=== PATIENT | male | born 1975 | race Caucasian/White ===

== ENCOUNTER 2016-07-16 11:47 | Observation (INO) | payer BC ==
--- NOTE | ~2016-07-16 | HP ---
History And Physical [address] [place]. [address] NAME: CLAUDIO GAMA JR : 75 STATUS : ADM Nydia PAT#: [id number] AGE: 41 ADM/REG DATE : 07/16/16 MR#: [id number] REPORT SERV DATE: 07/16/16 DICTATED BY: HERNANDEZ SANTIAGO DATE: 07/16/16 REPORT STATUS : Draft TRANSCRIBED BY: MODL DATE: 07/16/16 DATE OF ADMISSION: 07/16/2016 CHIEF COMPLAINT: Fever and right fifth toe infection. HISTORY OF PRESENT ILLNESS: This is a 41-year-old gentleman with history of insulin- dependent diabetes type 2, coronary artery disease, ischemic cardiomyopathy, presenting with fever and right fifth toe infection. The patient reports that, he started having fevers up to 104 at home for the past two days. The patient was actually seen at [facility] and at that time, there was no source of infection was identified. Other than the fever, the patient was also asymptomatic. The patient was thus discharged from the ER. At home, the patient unfortunately continued to have fevers and he started having slight pain and burning around, where he had his veins harvested for the CABG procedure in his right leg. Then this morning, the patient's right toe was notably swollen, red, and tender. The patient came to the ER for further evaluation and care. Here in the ER, the patient was found to be afebrile and hemodynamically stable. Initial lab evaluation revealed hyperglycemia with blood sugar of 475, but otherwise benign CMP. CBC was also benign. X-ray was performed and actually identified a small locule of gas in his right fifth toe. The patient was seen by the nurse practitioner here in the ER, who squeezed his right toe to express grossly purulent discharge. Also, the patient's right foot and his leg was red and warm to touch. Internal Medicine consultation was requested for admission of patient for further evaluation and care. REVIEW OF SYSTEMS: The patient had fevers up to 104 at home. Otherwise, 14-point review of systems reviewed and negative other than mentioned above. MEDICATIONS: 1. Tylenol 500 to 1000 mg p.o. q.4 hours p.r.n. 2. Aspirin 81 mg p.o. q.a.m. 3. Wellbutrin 300 mg p.o. q.a.m. 4. Coreg 3.125 mg p.o. b.i.d. 5. Klonopin 0.5 mg p.o. at bedtime p.r.n. 6. NovoLog per sliding scale. 7. Lantus 16 units subcu q.a.m. 8. Lisinopril 2.5 mg p.o. q.a.m. 9. Demadex 20 mg to 40 mg p.o. daily p.r.n. ALLERGIES: 1. IODINATED CONTRAST MEDIUM. 2. PROCAINE. PAST MEDICAL HISTORY: 1. Coronary artery disease. 2. Insulin-dependent diabetes type 2. History And Physical [address] [address] NAME: CLAUDIO GAMA : 75 STATUS : ADM Nydia PAT#: [id number] AGE: 41 ADM/REG DATE : 07/16/16 MR#: [id number] REPORT SERV DATE: 07/16/16 DICTATED BY: HERNANDEZ SANTIAGO DATE: 07/16/16 REPORT STATUS : Draft TRANSCRIBED BY: RADHA DATE: 07/16/16 3. Ischemic cardiomyopathy with ejection fraction of 25% to 35%. The patient has defibrillator and pacemaker. The patient's physicians include: 1. Dr. Yancey, PCP. 2. Dr. Kent of Cardiology. PAST SURGICAL HISTORY: 1. Five-vessel CABG in 2014. 2. Sinus surgeries. 3. Pacemaker and defibrillator implantation. FAMILY HISTORY: Diabetes. SOCIAL HISTORY: The patient has quit smoking since two years ago, when he had the CABG. The patient otherwise does not drink alcohol or use any illicit drugs. The patient lives at home with his , who is at bedside. PHYSICAL EXAMINATION: VITAL SIGNS: Temperature 98.9, blood pressure 142/76, pulse 89, respiratory rate is 16, and saturating 97% on room air. NEUROLOGIC: The patient is alert and oriented x3 with no focal neurologic deficits. GENERAL: The patient is awake, does not appear to be in acute distress, and he is cooperative. NECK: No JVD. No lymphadenopathy. Normal thyroid. CHEST: No midline sternotomy scar and no tenderness to palpation. LUNGS: Clear to auscultation bilaterally with normal respiratory effort on room air. CARDIOVASCULAR: Regular rate and rhythm with no murmurs, rubs, or gallops, and PMI is nondisplaced. ABDOMEN: Soft, nontender, with active bowel sounds and no organomegaly. EXTREMITIES: No edema. Normal distal pulses. No calf tenderness. SKIN: Clean, dry, warm, and intact. Notably, in his right toe and right lower extremity, the patient has some redness and streaking up his dorsal surface of the foot as well as the anterior noriega. The patient's right fifth toe is dark, quite red, to almost turning into black, although this does not seem like it is gangrenous at this point in time. It is nonetheless swollen, quite bad. LABORATORY DATA: Sodium is 135, potassium 4.1, chloride 98, BUN 10, creatinine 1.32, glucose 475, calcium 9.0. LFTs are benign. White blood cell count is 12.2, hemoglobin 16.1, platelets 162. Urinalysis was negative and x-ray of the foot showed a small locule of gas in his right fifth toe and that was before the pus was drained from external pressure. ASSESSMENT AND PLAN: This is a 41-year-old gentleman with history of insulin-dependent diabetes type 2, coronary artery disease, and ischemic cardiomyopathy, presenting with a right fifth toe infection. 1. Right fifth diabetic toe infection with right lower extremity cellulitis and lymphangitis. 2. Coronary artery disease with ischemic cardiomyopathy, ejection fraction of 25%-30%. History And Physical [address] [address] NAME: CLAUDIO GAMA JR : 75 STATUS : ADM Nydia PAT#: [id number] AGE: 41 ADM/REG DATE : 07/16/16 MR#: [id number] REPORT SERV DATE: 07/16/16 DICTATED BY: HERNANDEZ SANTIAGO DATE: 07/16/16 REPORT STATUS : Draft TRANSCRIBED BY: MODL DATE: 07/16/16 The patient has defibrillator and pacemaker. 3. Insulin-dependent diabetes type 2, that is uncontrolled with blood sugar of 475 here in the ER. PLAN: My plan is to admit the patient under telemetry monitoring. The patient will be empirically started on some antibiotics. I will get Podiatry to come and evaluate the patient. In the meantime, I will complete infectious workup with blood cultures as needed when the patient becomes febrile as well as repeating CBC, procalcitonin level, ESR, CRP. For the diabetes that is uncontrolled, the patient will be given additional insulin sliding scale coverage on top of his home insulin. Otherwise, for the rest of stable past medical conditions, including coronary artery disease and ischemic cardiomyopathy, I will continue home medications. Standard DVT prophylaxis. The patient is full code at this time. YSC/MODL Hernandez Santiago MD / [id number] CC: MD Alfie Cuellar M.D., Ph.D, F.A.C.C.
--- NOTE | ~2016-07-16 | OP ---
Record Of Operation [facility] [address] [place]. [address] NAME: CLAUDIO GAMA JR : 75 STATUS : ADM Nydia PAT#: [id number] AGE: 41 ADM/REG DATE : 07/16/16 MR#: [id number] REPORT SERV DATE: 07/17/16 DICTATED BY: MICHELE TEIXEIRA DATE: 07/17/16 REPORT STATUS : Draft TRANSCRIBED BY: MODL DATE: 07/17/16 DATE OF PROCEDURE: 07/17/2016 PREOPERATIVE DIAGNOSIS: Toe infection right foot, small toe. POSTOPERATIVE DIAGNOSIS: Toe infection right foot, small toe. PROCEDURE: Debridement of soft tissues of right small toe. ANESTHESIA: None. SPECIMEN: None. HISTORY: The patient is a 41-year-old, with a toe infection of 5th toe, was admitted by the hospitalist, started on antibiotics. He had gross purulence and also evidence of necrotic skin at the tip of this toe. I discussed the treatment options including debridement and wound care, and he wanted to proceed. OPERATIVE NOTE: I used a scissors to sharply excise the necrotic tissue from the skin just medial and distal to the toenail. I excised the skin layer and subcutaneous tissues as well and excised necrotic tissues of the fat pad down to almost to the bone. We excised the subcutaneous tissues and skin. Then, I irrigated the area extensively with saline, and I placed a wet-to-dry dressing on the toe. He tolerated the procedure well. ROMANA/RADHA Michele Teixeira MD / [id number] CC: MD Stephanie Cuellar M.D.
--- NOTE | ~2016-07-16 | CN ---
Consultation Report [facility] [address] [place]. [address] NAME: CLAUDIO GAMA JR : 75 STATUS : DIS Nydia PAT#: [id number] AGE: 41 ADM/REG DATE : 07/16/16 MR#: [id number] REPORT SERV DATE: 07/17/16 DICTATED BY: MICHELE TEIXEIRA DATE: 07/17/16 REPORT STATUS : Draft TRANSCRIBED BY: MODL DATE: 07/17/16 CONSULTATION DATE OF CONSULTATION: 07/17/2016 CHIEF COMPLAINT: Right small toe infection. HISTORY: The patient is a 41-year-old gentleman who has a history of poorly-controlled diabetes, who noticed infection of his small toe over the last couple of days. He said it was red, swollen, tender and came to the emergency room for evaluation. He also reported having fevers up to 104 for the past two days at home. He complained of purulent discharge from the tip of the 5th small toe as well. He also complains of streaking up his medial side of the leg, streaking erythema. PAST MEDICAL HISTORY: Type 2 diabetes, coronary artery disease, ischemic cardiomyopathy. He has had a CABG in 2015. He has a pacemaker and defibrillator. Sinus surgeries. FAMILY HISTORY: Diabetes. MEDICATIONS: He is on Tylenol, aspirin, Wellbutrin, Coreg, Klonopin, NovoLog sliding scale, Lantus, lisinopril, and Demodex. ALLERGIES: TO CONTRAST AND PROCAINE. SOCIAL HISTORY: Quit smoking two years ago. Does not drink or use illicit drugs. PHYSICAL EXAMINATION: GENERAL: A well-developed, well-nourished male, in no acute distress. HEENT: Normocephalic, atraumatic. RESPIRATORY: Nonlabored respirations. Equal chest rise bilaterally. EXTREMITIES: No cyanosis, clubbing, or edema. He has erythema on the dorsum of his right foot and some erythema up his medial calf and also a toe wound. MUSCULOSKELETAL: Right lower extremity has a toe wound just medial and distal to his nail, has purulent drainage with necrotic skin in that area. He has abnormal sensation with minimal sensation in a stocking-glove type pattern. Motor is intact. SKIN: Erythema of the right toe, redness, and streaking on the dorsum of his foot and anterior noriega. Also, his whole small 5th toe is erythematous. PSYCH: Appropriate mood and affect. NEUROLOGIC: Alert and oriented x3. IMAGING: X-rays; no fractures seen on his foot x-ray, some gas around its distal toe. CT scan shows no evidence of osteomyelitis and no abscess fluid collection. LABORATORY DATA: Glucose on admission 475. Consultation Report [facility] [address] [place] [address] NAME: CLAUDIO GAMA JR : 75 STATUS : DIS Nydia PAT#: [id number] AGE: 41 ADM/REG DATE : 07/16/16 MR#: [id number] REPORT SERV DATE: 07/17/16 DICTATED BY: MICHELE TEIXEIRA DATE: 07/17/16 REPORT STATUS : Draft TRANSCRIBED BY: RADHA DATE: 07/17/16 ASSESSMENT/PLAN: Toe infection. He is already on antibiotics. We will plan for bedside debridement and then dressing changes and then a followup with the wound care facility here at [facility]. GIBSON/RADHA Michele Teixeira MD / [id number] CC: MD Stephanie Cuellar M.D.
--- NOTE | ~2016-07-16 | DS ---
Discharge Summary [facility] [address] [place]. [address] NAME: CLAUDIO GAMA JR : 75 STATUS : DIS Nydia PAT#: [id number] AGE: 41 ADM/REG DATE : 07/16/16 MR#: [id number] REPORT SERV DATE: 07/17/16 DICTATED BY: HERNANDEZ SANTIAGO DATE: 07/17/16 REPORT STATUS : Draft TRANSCRIBED BY: MODL DATE: 07/17/16 ADMISSION DATE: 07/16/2016 DISCHARGE DATE: 07/17/2016 DISCHARGE DIAGNOSES: 1. Right fifth diabetic toe infection along with right lower extremity cellulitis and lymphangitis, status post bedside I and D by Dr. Saavedra. 2. Coronary artery disease with ischemic cardiomyopathy, ejection fraction of 25% to 30%. The patient has a defibrillator and pacemaker. 3. Insulin-dependent diabetes type 2 that was not controlled on ER presentation but better controlled now. CONSULTS: Dr. Saavedra of Podiatry. PROCEDURES: Bedside incision and drainage of the right fifth toe by Dr. Saavedra. HOSPITAL COURSE: This is a 41-year-old gentleman with a history of insulin-dependent diabetes type 2 as well as coronary artery disease and ischemic congestive heart failure who presented to the hospital with a right fifth toe diabetic infection. The patient was admitted to the hospital and was started on empiric IV antibiotics. The patient was seen by Dr. Saavedra of Podiatry who performed a bedside I and D and excised all the necrotic tissue from the skin. The necrotic tissue of the fat pad was excised almost down to the bone. It was irrigated extensively, and postop, it appeared that all the necrotic tissue was removed, and the remaining tissue was clean and viable. The patient will depend heavily on adequate wound care for future healing. From a medical standpoint, the patient was stable for discharge home with empiric antibiotic therapy. The patient again is to establish care with Wound Care and follow up with Dr. Saavedra upon discharge. DISCHARGE MEDICATIONS: The patient is being discharged home with empiric doxycycline for a 2 week course. Otherwise, no new medications. DISPOSITION: 1. Discharged to home. 2. Please follow up with Dr. Saavedra and Wound Care as instructed. 3. Please follow up with PCP as instructed. A total of 20 minutes were spent in coordinating this patient's discharge today. LEANDRO/RADHA Hernandez Santiago MD / [id number] Discharge Summary [address] [address] [place]. [address] NAME: CLAUDIO GAMA : 75 STATUS : DIS Nydia PAT#: [id number] AGE: 41 ADM/REG DATE : 07/16/16 MR#: [id number] REPORT SERV DATE: 07/17/16 DICTATED BY: HERNANDEZ SANTIAGO DATE: 07/17/16 REPORT STATUS : Draft TRANSCRIBED BY: MODL DATE: 07/17/16 CC: MD Stephanie Cuellar M.D.
[~2016-07-16 11:47] MED LIST: COREG3 PO; COREG6 PO; COZ50 PO; CRESTOR20 MG PO; CRESTOR40 MG PO; DEMA20 PO; HALF81 PO; KLONO5 PO; LANTUSCART SC; NORCO1 TA1 PO; NOVOPEN SC; PRIN2.5 PO; ULTRAM50 PO
[2016-07-16 12:12] LABS: BASOPHILS 0.2 %; BASOPHILS ABSOLUTE 0.02 10/3/uL (0.0-0.16); EOSINOPHILS 0.1 %; EOSINOPHILS ABSOLUTE 0.01 10/3/uL (0.0-0.53); ER CBC TAT 0 Hrs 09 Mins; HEMATOCRIT 43.8 % (40.0-51.0); HEMOGLOBIN 16.1 g/dL (13.6-17.8); IMMATURE GRANULOCYTES 0.2 %; IMMATURE GRANULOCYTES ABSOLUTE 0.03 10/3/uL (0.0-0.11); LYMPHOCYTES 10.5 %; LYMPHOCYTES ABSOLUTE 1.28 10/3/uL (0.67-4.30); MEAN CORPUS HGB CONC 36.8 g/dL (32.0-36.0); MEAN CORPUSCULAR HEMOGLOB 32.9 pg (26.0-34.0); MEAN CORPUSCULAR VOLUME 89.4 fL (80-100); MEAN PLATELET VOLUME 10.3 fL (9.2-13.0); MONOCYTES 8.3 %; MONOCYTES ABSOLUTE 1.01 10/3/uL (0.21-1.20); NEUTROPHILS 80.7 %; NEUTROPHILS ABSOLUTE 9.85 10/3/uL (2.02-8.40); PLATELET COUNT 162 10/3/uL (150-400); RBC DISTRIBUTION WIDTH 12.8 % (12.0-16.0); WHITE BLOOD CELLS 12.2 10/3/uL (4.5-10.5)
[2016-07-16 12:13] LABS: MANUAL DIFF NO %
[2016-07-16 12:24] LABS: ASCORBIC ACID (UR NOT ORDER) NEG (NEG); BILIRUBIN, URINE NEGATIVE (NEG); ER URINALYSIS TAT 0 Hrs 21 Mins; KETONE, URINE 20 MG/DL (NEG); LEUKOCYTE ESTERASE(NOT OR NEG (NEG); NITRITE (URINE) NEG (NEG); WBC (NOT ORDERED) (RFLEX) 1 (0-5)
[2016-07-16 12:29] LABS: A/G RATIO 0.7 (0.7-1.9); ALBUMIN 3.5 G/DL (3.5-5.0); ALKALINE PHOSPHATASE 118 U/L (45-117); BUN (BLOOD UREA NITROGEN) 10 MG/DL (6-23); CHLORIDE, SERUM 98 MMOL/L (96-112); CO2 (CARBON DIOXIDE) 26 MMOL/L (24-34); CREATININE 1.32 MG/DL (0.70-1.30); GFR AFRICAN AMERICAN 77 ML/MIN (>=60); GFR NON AFRICAN AMERICAN 67 ML/MIN (>=60); GLOBULIN 4.8 G/DL (2.5-4.1); POTASSIUM, SERUM 4.1 MMOL/L (3.5-5.3); SGOT(AST) 36 U/L (5-40); SGPT(ALT) 47 U/L (5-65); SODIUM, SERUM 135 MMOL/L (135-148); TOTAL BILIRUBIN 1.7 MG/DL (0-1.2); TOTAL PROTEIN 8.3 G/DL (6.0-8.5)
[2016-07-16 12:30] LABS: GLUCOSE, SERUM 475 MG/DL (60-99)
[2016-07-16 12:34] LABS: PLATELET ESTIMATE ADQ (ADEQUATE); RBC MORPHOLOGY NORM (NORMAL)
[2016-07-16] MEDS ORDERED: HALF81 PO (13:05)
[2016-07-16] MEDS ORDERED: PRIN2.5 PO (13:05)
[2016-07-16] MEDS ORDERED: LANTUSCART SC (13:06)
[2016-07-16] MEDS ORDERED: NOVOPEN SC (13:06)
[2016-07-16] MEDS ORDERED: WELLXL300 PO (13:06)
[2016-07-16] MEDS ORDERED: KLONO5 PO (13:06)
[2016-07-16] MEDS ORDERED: ACET500CAP PO (13:07)
[2016-07-16] MEDS ORDERED: DEMA20 PO (13:07)
[2016-07-16] MEDS ORDERED: COREG3 PO (13:07)
[2016-07-17 04:42] LABS: BASOPHILS 0.1 %; BASOPHILS ABSOLUTE 0.01 10/3/uL (0.0-0.16); EOSINOPHILS 0.3 %; EOSINOPHILS ABSOLUTE 0.03 10/3/uL (0.0-0.53); HEMOGLOBIN 14.2 g/dL (13.6-17.8); IMMATURE GRANULOCYTES 0.2 %; IMMATURE GRANULOCYTES ABSOLUTE 0.02 10/3/uL (0.0-0.11); LYMPHOCYTES ABSOLUTE 1.41 10/3/uL (0.67-4.30); MEAN CORPUS HGB CONC 35.5 g/dL (32.0-36.0); MEAN CORPUSCULAR HEMOGLOB 31.8 pg (26.0-34.0); MEAN CORPUSCULAR VOLUME 89.5 fL (80-100); MEAN PLATELET VOLUME 10.5 fL (9.2-13.0); MONOCYTES 8.8 %; MONOCYTES ABSOLUTE 0.95 10/3/uL (0.21-1.20); NEUTROPHILS 77.6 %; NEUTROPHILS ABSOLUTE 8.43 10/3/uL (2.02-8.40); PLATELET COUNT 164 10/3/uL (150-400); RBC DISTRIBUTION WIDTH 12.8 % (12.0-16.0); RED CELL COUNT 4.47 10/6/uL (4.7-6.1); WHITE BLOOD CELLS 10.9 10/3/uL (4.5-10.5)
[2016-07-17 04:44] LABS: MANUAL DIFF NO %
[2016-07-17 04:57] LABS: BUN (BLOOD UREA NITROGEN) 13 MG/DL (6-23); CALCIUM, SERUM 8.4 MG/DL (8.5-10.4); CHLORIDE, SERUM 103 MMOL/L (96-112); CO2 (CARBON DIOXIDE) 25 MMOL/L (24-34); CREATININE 1.22 MG/DL (0.70-1.30); GFR AFRICAN AMERICAN 85 ML/MIN (>=60); GFR NON AFRICAN AMERICAN 73 ML/MIN (>=60); SODIUM, SERUM 137 MMOL/L (135-148)
[2016-07-17 04:58] LABS: GLUCOSE, SERUM 249 MG/DL (60-99)
[2016-07-17 05:52] LABS: PROCALCITONIN 0.26 ng/mL (<0.5)
[2016-07-17 05:57] LABS: SED RATE 74 MM/HR (0-15)
[2016-07-17] MEDS ORDERED: VIBRATAB100 MG PO (12:32)
== END 2016-07-17 12:54 | disposition home or self-care (01) ==
LOC: ER 11:47 → CDU1 14:45
PROVIDERS: Emergency Medicine; Internal Medicine
DX: E11.621 Type 2 diabetes mellitus with foot ulcer (principal); L97.519 Non-pressure chronic ulcer of other part of right foot with unspecified severity; I25.10 Atherosclerotic heart disease of native coronary artery without angina pectoris; I25.5 Ischemic cardiomyopathy; Z95.0 Presence of cardiac pacemaker; Z95.5 Presence of coronary angioplasty implant and graft; Z91.041 Radiographic dye allergy status; Z88.8 Allergy status to other drugs, medicaments and biological substances; Z79.899 Other long term (current) drug therapy
CPT/HCPCS: 73630-RT; 73700-RT; 80048; 80053; 81001; 82962; 83036; 84145; 85025; 85652; 86140; 87040; 87070; 87077; 87186; 87205; 96365; 96366; 96372; 96375; 96376; 99284; A9270-GY; G0378; J2543; J3370